=== PATIENT | female | born 1980 | race Hispanic/Latino ===

== ENCOUNTER 2021-02-26 02:10 | Inpatient (IN) | payer OTHER ==
[2021-02-26 02:41] VITALS: BMI 30.7
[2021-02-26] MEDS ORDERED: NS w/ Oxytocin 30 units 500 ML ONE (02:44)
[2021-02-26] MEDS ORDERED: Lidocaine 1% (PF) 30 ML VIAL ONE (02:44)
[2021-02-26] MEDS ORDERED: Fentanyl 2 mcg/Bup 0.1% Cadd 100 ML ONE (02:49)
[2021-02-26] MEDS ORDERED: Ibuprofen 800 MG TAB PO PRN (02:53)
[2021-02-26] MEDS ORDERED: Lidocaine 1% (PF) 30 ML VIAL SC PRN (02:53)
[2021-02-26] MEDS ORDERED: Methylergonovine 0.2 MG/ML VIAL IM PRN ×2 (02:53→06:22)
[2021-02-26] MEDS ORDERED: Ondansetron PF 4 MG/2 ML Vial IVP PRN ×3 (02:53→06:22)
[2021-02-26] MEDS ORDERED: HYDROcodone/Acetaminophen 5/325 mg Tablet PO PRN ×3 (02:53→06:22)
[2021-02-26] MEDS ORDERED: Misoprostol 200 MCG TAB PR PRN (02:53)
[2021-02-26] MEDS ORDERED: hydrALAZINE 20 MG/ML VIAL SLOW IVP PRN ×2 (02:53→06:22)
[2021-02-26] MEDS ORDERED: Carboprost 250 MCG/ML AMP IM PRN (02:53)
[2021-02-26] MEDS ORDERED: Promethazine HCl 25 MG/ML VIAL IM PRN ×2 (02:53→03:40)
[2021-02-26] MEDS ORDERED: Acetaminophen 500 MG TAB PO PRN (02:53)
[2021-02-26] MEDS ORDERED: Diphenoxylate HCl/Atropine Tablet PO PRN (02:53)
[2021-02-26] MEDS ORDERED: Lactated Ringer's 1,000 ML IV SCH (03:00)
[2021-02-26] MEDS ORDERED: NS w/ Oxytocin 30 units 500 ML IV SCH ×2 (03:00→06:22)
[2021-02-26 03:07] LABS: Hemoglobin 11.2 g/dL (12.0-15.5); Mean Corpuscular HGB CONC 32.3 g/dL (32.0-36.0); Mean Corpuscular Hemoglobin 27.7 pg (27.0-33.0); Mean Corpuscular Volume 85.9 fl (81.6-98.3); Mean Platelet Volume 11.6 fl (7.4-10.4); Platelet Count 242 10x3/uL (150-450); RBC Distribution Width 18.6 % (11.5-14.5); Red Blood Cell (RBC) Count 4.04 10x6/uL (3.90-5.03); White Blood Cell (WBC) Count 7.4 10x3/uL (3.5-10.5)
[2021-02-26 03:40] LABS: Syphilis Antibody Nonreactive (Nonreactive); Syphilis Antibody Index 0.06 S/CO (<1.00 Non-Reactive)
[2021-02-26] MEDS ORDERED: diphenhydrAMINE 50 MG/ML VIAL IVP PRN (03:40)
[2021-02-26] MEDS ORDERED: Naloxone HCl 0.4 mg/ml Vial IVP PRN ×2 (03:40)
[2021-02-26] MEDS ORDERED: Lactated Ringer's 500 ML IV PRN (03:40)
[2021-02-26] MEDS ORDERED: Hydrocerin (Eucerin) Cream 120 gm Jar TOP PRN (03:40)
[2021-02-26] MEDS ORDERED: ePHEDrine Sulfate 50 MG/10 ML VIAL SLOW IVP PRN (03:40)
[2021-02-26] MEDS ORDERED: Acetaminophen 325 MG TAB PO PRN (03:40)
[2021-02-26 03:42] LABS: Hep B Surf Ag Non-Reactive S/CO (NonReactive)
[2021-02-26] MEDS ORDERED: Fentanyl 2 mcg/Bupivacaine 0.1% Cassette 100 ML EPIDURAL SCH (03:45)
[2021-02-26] MEDS ORDERED: Communication Order-Pharmacy FS SCH (03:45)
[2021-02-26] MEDS: NS w/ Oxytocin 30 units 500 ML IV SCH ×2 (04:49→06:07)
[2021-02-26] MEDS ORDERED: Misoprostol 200 MCG TAB VAG PRN (06:22)
[2021-02-26] MEDS ORDERED: Bisacodyl 10 MG SUPP PR PRN (06:22)
[2021-02-26] MEDS ORDERED: Milk Of Magnesia 30 ML UDCUP PO PRN (06:22)
[2021-02-26] MEDS ORDERED: Boostrix 0.5 ML (Tdap) VIAL IM ONE (06:22)
[2021-02-26] MEDS ORDERED: Benzocaine-Menthol 82.5 ML CAN TOP PRN (06:22)
[2021-02-26] MEDS ORDERED: CEFAZOLIN 2 GM in Premix Bag 1 BAG IVPB SCH ×2 (06:22→06:30)
[2021-02-26 06:27] LABS: SARS-CoV-2 NAA Rapid Test Not Detected (NotDetected)
[2021-02-26] MEDS ORDERED: Ibuprofen 800 MG TAB PO SCH (06:30)
[2021-02-26] MEDS: Ferrous Sulfate 325 MG TAB PO SCH ×2 (07:54→17:20)
[2021-02-26] MEDS ORDERED: Bupivacaine 0.25% HCL 30 ML VIAL ONE (08:00)
[2021-02-26] MEDS: Docusate Calcium (SURFAK) 240 MG CAP PO SCH ×2 (08:19→21:59)
[2021-02-26] MEDS: Ibuprofen 800 MG TAB PO SCH ×3 (08:20→22:00)
[2021-02-26] MEDS: HYDROcodone/Acetaminophen 5/325 mg Tablet PO PRN (22:01)
[2021-02-27] MEDS: Ibuprofen 800 MG TAB PO SCH ×2 (05:50→13:54)
[2021-02-27] MEDS: HYDROcodone/Acetaminophen 5/325 mg Tablet PO PRN (05:50)
[2021-02-27 07:26] VITALS: BP 111/61; TEMP 97.9
[2021-02-27] MEDS: Ferrous Sulfate 325 MG TAB PO SCH (08:09)
[2021-02-27] MEDS: Docusate Calcium (SURFAK) 240 MG CAP PO SCH (08:19)
== END 2021-02-27 14:30 | disposition home or self-care (01) | DRG 807 ==
LOC: CSHLD/OP 02:10 → CSHLD 02:11 → CSHPP 07:41
PROVIDERS: ADMIT Student in an Organized Health Care Education/Training Program; ATTEND Student in an Organized Health Care Education/Training Program
PROC: 10E0XZZ Delivery of Products of Conception, External Approach (ICD-10-PCS; principal; 2021-02-26)
PROC: 0KQM0ZZ Repair Perineum Muscle, Open Approach (ICD-10-PCS; 2021-02-26)
DX: O99.02 Anemia complicating childbirth (principal); Z37.0 Single live birth; D64.9 Anemia, unspecified; Z20.822 Contact with and (suspected) exposure to COVID-19; O70.1 Second degree perineal laceration during delivery; Z3A.40 40 weeks gestation of pregnancy
CPT/HCPCS: 85027; 86780; 86850; 86900; 86901; 87340; J0690; J2590; S0020; U0002